=== PATIENT | female | born 1965 | race Caucasian/White ===

== ENCOUNTER 2017-09-03 11:53 | Day surgery (SDC) | payer OTHER ==
[~2017-09-03] VITALS: Ht 172.7 cm; Wt 78.9 kg
[2017-09-03 14:53] VITALS: BP 122/67
== END 2017-09-03 14:48 | disposition home or self-care (01) | DRG 951 ==
LOC: ENDO 11:53 → ORM 17:15 → ENDO 17:15 → ORM 18:30
PROVIDERS: ATTEND Internal Medicine Gastroenterology
PROC: 0DJD8ZZ Inspection of Lower Intestinal Tract, Via Natural or Artificial Opening Endoscopic (ICD-10-PCS; principal; 2017-09-03)
DX: Z12.11 Encounter for screening for malignant neoplasm of colon (principal); K57.30 Diverticulosis of large intestine without perforation or abscess without bleeding; K64.4 Residual hemorrhoidal skin tags; K64.8 Other hemorrhoids